=== PATIENT | female | born 1985 ===

== ENCOUNTER 2016-07-26 21:16 | Emergency (ER) | payer SELFPAY ==
[2016-07-26 22:00] VITALS: BP 125/82; PULSE 71; RESP 20; TEMP 98; O2SAT 99
--- NOTE | 2016-07-26 22:51 | CT ---
EXAM: CT Neck Without Intravenous Contrast CLINICAL HISTORY: 31 years old, female; Signs and symptoms; Other: R/O foreign body; Additional info: Possible fishbone in throat TECHNIQUE: Axial computed tomography images of the neck without intravenous contrast. This CT exam was performed using one or more of the following dose reduction techniques: automated exposure control, adjustment of the mA and/or kV according to patient size, and/or use of iterative reconstruction technique. Coronal and sagittal reformatted images were created and reviewed. COMPARISON: No relevant prior studies available. FINDINGS: Limitations: Lack of intravenous contrast. Nasopharynx: Unremarkable. Oropharynx: No significant tonsillar enlargement. Hypopharynx: Unremarkable. Larynx: Unremarkable. Normal epiglottis. Trachea: Unremarkable. Retropharyngeal space: Unremarkable. Submandibular/parotid glands: Unremarkable. Glands are normal in size. Thyroid: Unremarkable. No enlarged or calcified nodules. Bones/joints: No acute fracture. Soft tissues: No radiopaque foreign bodies. Vasculature: No acute findings. Lymph nodes: No pathologically enlarged lymph nodes. Lung apices: Unremarkable as visualized. IMPRESSION: 1. No radiopaque foreign bodies. 2. Incidental/non-acute findings are described above.
--- NOTE | 2016-07-26 23:30 | C.PDOC ---
History Of Present Illness Patient is a 31 year old female who presents to the ER with a complaint of a FB sensation in her throat after eating bony fish last night. Patient she felt fine at the time, however, today she developed a FB sensation in her throat. Denies SOB, throat pain or trouble swallowing Time Seen by Provider: 07/26/16 22:03 Chief Complaint (Nursing): Foreign Body History Per: Patient, Family (teenage daughter- with pt's permission) History/Exam Limitations: None Onset/Duration Of Symptoms: Hrs Current Symptoms Are (Timing): Still Present Quality (Mouth/Throat): Other (FB sensation) Symptoms Have Been: Continuous Anticoagulant/Antiplatlet Use?: Unknown Recent Aspirin Use: Unknown Past Medical History Reviewed: Historical Data, Nursing Documentation, Vital Signs Vital Signs: Last Vital Signs Temp 98 F 07/26/16 21:54 Pulse 71 07/26/16 21:54 Resp 20 07/26/16 21:54 BP 125/82 07/26/16 21:54 Pulse Ox 99 07/27/16 00:59 - Medical History PMH: No Chronic Diseases Surgical History: No Surg Hx Family History: States: Unknown Family Hx - Social History Hx Alcohol Use: No Hx Substance Use: No Review Of Systems ENT: Positive for: Other (FB sensation in throat). Negative for: Throat Pain, Throat Swelling Respiratory: Negative for: Shortness of Breath Physical Exam - Physical Exam Appears: Non-toxic Skin: Normal Color, Warm, Dry Head: Atraumatic, Normacephalic Eye(s): bilateral: Normal Inspection, PERRL Ear(s): Bilateral: Normal Oral Mucosa: Moist Tongue: Normal Appearing, No Swelling Lips: Normal Appearing, No Swelling Gingiva: Normal Appearing, No Erythema Throat: Normal, No Other (No FB visualized) Neck: Normal, Supple Cardiovascular: Rhythm Regular, No Murmur Respiratory: Normal Breath Sounds, No Stridor, No Wheezing Neurological/Psych: Oriented x3, Normal Speech ED Course And Treatment O2 Sat by Pulse Oximetry: 99 (Room air) Pulse Ox Interpretation: Normal - CT Scan/US CT of neck/soft tissue w/o contrast Other Rad Studies (CT/US): Read By Radiologist, Radiology Report Reviewed CT/US Interpretation: EXAM: CT Neck Without Intravenous Contrast. CLINICAL HISTORY: 31 years old, female; Signs and symptoms; Other: R/O foreign body; Additional info: Possible. fishbone in throat. TECHNIQUE: Axial computed tomography images of the neck without intravenous contrast. This CT exam was. performed using one or more of the following dose reduction techniques: automated exposure. control, adjustment of the mA and/or kV according to patient size, and/or use of iterative. reconstruction technique. Coronal and sagittal reformatted images were created and reviewed. COMPARISON: No relevant prior studies available. FINDINGS: Limitations: Lack of intravenous contrast. Nasopharynx: Unremarkable. Oropharynx: No significant tonsillar enlargement. Hypopharynx: Unremarkable. Larynx: Unremarkable. Normal epiglottis. Trachea: Unremarkable. Retropharyngeal space: Unremarkable. Submandibular/parotid glands: Unremarkable. Glands are normal in size. Thyroid : Unremarkable. No enlarged or calcified nodules. Bones/joints: No acute fracture. Soft tissues: No radiopaque foreign bodies. Vasculature: No acute findings. Lymph nodes: No pathologically enlarged lymph nodes. Lung apices: Unremarkable as visualized. IMPRESSION: 1. No radiopaque foreign bodies. 2. Incidental/non-acute findings are described above. Progress Note: CT of neck/soft tissue ordered and results were d/w pt. Pt advised to follow up with ENT if sensation persists and return precautions discussed and undertood by pt Disposition Counseled Patient/Family Regarding: Diagnosis, Need For Followup, Rx Given - Disposition Referrals: Buck Ramirez MD [Staff Provider] - Disposition: HOME/ ROUTINE Disposition Time: 23:28 Condition: STABLE Additional Instructions: Please follow up with ENT if still sensation of foreign body Return to ER if worse Forms: Gen Discharge Inst Cypriot - Clinical Impression Clinical Impression: Sensation of foreign body in throat - Scribe Statement The provider has reviewed the documentation as recorded by the Cyrus Shepherd All medical record entries made by the Patriceibradha were at my direction and personally dictated by me. I have reviewed the chart and agree that the record accurately reflects my personal performance of the history, physical exam, medical decision making, and the department course for this patient. I have also personally directed, reviewed, and agree with the discharge instructions and disposition.
== END 2016-07-26 23:35 | disposition home or self-care (01) ==
LOC: C.ER 21:16
DX: R09.89 Other specified symptoms and signs involving the circulatory and respiratory systems (principal)